=== PATIENT | female | born 1975 | race African-American/Black ===

== ENCOUNTER 2016-10-04 17:02 | Emergency (ER) | payer OTHER ==
[~2016-10-04] VITALS: Ht 162.6 cm; Wt 72.6 kg
[~2016-10-04 17:02] MED LIST: BACTRIM DS TAB1 EACH PO; IBUPROFEN 800800 M1 PO; MEDROLDOSEPACK PO; NORCO 5-325 TA1 EACH PO; PREDNISONE 20 M20 MG PO; TIZANIDINE HCL4 MG PO
[2016-10-04] MEDS ORDERED: HYDROCHLOROTH12.5 M1 PO (17:20)
[2016-10-04] MEDS ORDERED: IBUPROFEN 800800 M1 PO (18:54)
[2016-10-04 19:06] VITALS: BP 148/87
== END 2016-10-04 18:56 | disposition home or self-care (01) ==
LOC: ER 17:02
DX: S39.012A Strain of muscle, fascia and tendon of lower back, initial encounter (principal); S46.912A Strain of unspecified muscle, fascia and tendon at shoulder and upper arm level, left arm, initial encounter; F17.210 Nicotine dependence, cigarettes, uncomplicated; Z88.1 Allergy status to other antibiotic agents; W01.0XXA Fall on same level from slipping, tripping and stumbling without subsequent striking against object, initial encounter; Y93.89 Activity, other specified; Y92.89 Other specified places as the place of occurrence of the external cause; Y99.8 Other external cause status

== ENCOUNTER 2018-02-09 06:59 | Emergency (ER) | payer BC ==
[~2018-02-09] VITALS: Ht 162.6 cm; Wt 77.1 kg
[~2018-02-09 06:59] MED LIST changes: +HYDROCHLOROTH12.5 M1 PO; +NAPROSYN500 MG PO
[2018-02-09] MEDS ORDERED: PROMETHAZINE V118 M1 PO (08:18)
[2018-02-09] MEDS ORDERED: MUCINEX D ER 11 EACH PO (08:18)
[2018-02-09 08:30] VITALS: BP 128/82
== END 2018-02-09 08:30 | disposition home or self-care (01) ==
LOC: ER 06:59
DX: J06.9 Acute upper respiratory infection, unspecified (principal); F17.210 Nicotine dependence, cigarettes, uncomplicated; Z88.1 Allergy status to other antibiotic agents

== ENCOUNTER 2018-02-16 06:40 | Emergency (ER) | payer OTHER ==
[~2018-02-16] VITALS: Ht 162.6 cm; Wt 77.1 kg
[~2018-02-16 06:40] MED LIST changes: +MUCINEX D ER 11 EACH PO; +PROMETHAZINE V118 M1 PO
[2018-02-16 06:46] VITALS: BP 180/130
== END 2018-02-16 07:40 | disposition home or self-care (01) ==
LOC: ER 06:40
DX: N76.4 Abscess of vulva (principal); F17.210 Nicotine dependence, cigarettes, uncomplicated; Z88.1 Allergy status to other antibiotic agents